=== PATIENT | female | born 1975 | race Caucasian/White ===

== ENCOUNTER 2016-12-31 11:12 | Emergency (ER) | payer BC ==
[~2016-12-31] VITALS: Ht 167.6 cm; Wt 131.8 kg
[2016-12-31 11:14] VITALS: TEMP 98.4
[2016-12-31] MEDS ORDERED: VOLTAREN 50MG T50 MG PO (11:17)
[2016-12-31 12:20] LABS: BASO % 0.4 % (0.0-2.0); EOS # 0.1 (0.0-0.7); GRAN # 5.1 (1.4-6.5); GRAN % 61.9 % (42.2-75.2); LYMPH # 2.6 (1.2-3.4); LYMPH % 31.5 % (20.0-51.0); MEAN CELL VOLUME 91 fl (80.0-100.0); MEAN CORPUSCULAR HGB CONC 32 g/dl (33.0-37.0); MEAN PLATELET VOLUME 9.7 fl (7.4-10.4); MONO # 0.4 (0.1-0.6); MONO % 4.8 % (1.7-9.3); PLATELET COUNT 281 K/mm3 (130-400); RED BLOOD COUNT 3.99 M/mm3 (4.10-5.30); REDCELL DISTRIBUTION WIDTH-CV 13.7 % (11.5-14.5); WHITE BLOOD COUNT 8.3 K/mm3 (4.8-10.8)
[2016-12-31 12:22] LABS: HEMOGLOBIN 11.6 g/dl (12.5-16.0); MEAN CORPUSCULAR HEMOGLOBIN 29 pg (27.0-31.0)
[2016-12-31 12:23] LABS: HEMATOCRIT 36.1 % (37.0-47.0)
[2016-12-31 12:31] LABS: ADJUSTED CALCIUM 8.8 mg/dL (8.4-10.2); ALBUMIN 4.2 gm/dL (3.5-5.0); BILIRUBIN,TOTAL 0.7 mg/dL (0.0-1.0); CREATININE, serum 0.63 mg/dL (0.52-1.25); POTASSIUM 3.9 mmol/L (3.4-5.0); TOTAL PROTEIN 7.4 gm/dL (6.4-8.2)
[2016-12-31 13:03] LABS: PH 5 (5-8); URINE APPEARANCE Clear; URINE BACTERIA Rare /hpf; URINE BILIRUBIN Negative (NEGATIVE); URINE BLOOD Negative (NEGATIVE); URINE COLOR Yellow; URINE GLUCOSE Negative (NEGATIVE); URINE KETONE Negative (NEGATIVE); URINE RBC 0-2 /hpf; URINE UROBILINOGEN Negative (NEGATIVE); URINE WBC 0-2 /hpf
[2016-12-31] MEDS ORDERED: NORCO 325 MG-7.1 TAB PO (14:08)
[2016-12-31 15:05] VITALS: BP 142/68; PULSE 86
== END 2016-12-31 15:08 | disposition home or self-care (01) ==
LOC: COL.ER 11:12
PROVIDERS: Nurse Practitioner
DX: R10.32 Left lower quadrant pain (principal); R10.12 Left upper quadrant pain; R63.0 Anorexia; R11.0 Nausea
CPT/HCPCS: J1170; J2405; J7030; Q9967

== ENCOUNTER → 2018-01-13 | Outpatient (CLI) | payer OTHER, BC ==
[~2018-01-13] MED LIST: NORCO 325 MG-7.1 TAB PO; VOLTAREN 50MG T50 MG PO
== END ==
LOC: COL.RAD 13:19
DX: R22.41 Localized swelling, mass and lump, right lower limb (principal)

== ENCOUNTER → 2018-01-16 | Outpatient (CLI) | payer OTHER, BC | LOC: COL.RAD 07:17 | DX: M17.11 Unilateral primary osteoarthritis, right knee (principal); M94.8X8 Other specified disorders of cartilage, other site; M23.8X1 Other internal derangements of right knee; M70.41 Prepatellar bursitis, right knee | CPT/HCPCS: A9585 ==